=== PATIENT | male | born 2000 | race Caucasian/White ===

== ENCOUNTER 2023-06-25 10:00 | Emergency (ER) | payer OTHER, MEDICAID, SELFPAY ==
[2023-06-25 10:12] VITALS: BP 155/57; PULSE 113; RESP 15; TEMP 37.4; O2SAT 98; BMI 20.3
--- NOTE | 2023-06-25 10:21 | ED_ITS ---
HPI - Psych <Adilene Vargas DO - Last Filed: 06/25/23 18:35> General Chief Complaint: Psychiatric Symptoms Stated Complaint: Threating to kill sister and his mom Time Seen by Provider: 06/25/23 10:20 Source: patient Mode of arrival: Ambulatory Limitations: no limitations History of Present Illness HPI Narrative: 22-year-old male no reported medical history presents with his sister and mother with homicidal ideation with intent to harm/kill both his sister and mother and kill the world. Patient denies intention to harm himself. Does not answer questions why. Patient states he has been hospitalized in the past for mental health. He states he is taken medications. He states it has been a long time since he takes medications he does not really say if it has been months or years. He states he uses tobacco, denies any alcohol, denies any street drugs. Patient states he will not allow for any needles, he states that he does not want any drugs. He states he does not want to hurt anyone in the department right now but does not fully contract for safety for anyone else. Per family patient is schizophrenic has been off his medications for at least 6 months. Related Data Allergies Allergy/AdvReac Type Severity Reaction Status Date / Time No Known Drug Allergies Allergy Verified 06/25/23 10:12 Review of Systems <DO Kathi German Last Filed: 06/25/23 18:35> Review of Systems ROS Unobtainable: All systems reviewed & are unremarkable except as noted in HPI and below Patient History <Adilene Vargas DO - Last Filed: 06/25/23 18:35> Social History Smoking Status: Unknown if ever smoked Smoking Status: Unknown if ever smoked alcohol intake frequency: holidays/special occasions only Substance Use Type: does not use Exam <DO Kathi German Last Filed: 06/25/23 18:35> Narrative Exam Narrative: GENERAL: Alert and oriented x three, well-appearing male. HEENT: Head normocephalic, atraumatic, EOMI, pupils reactive, face symmetric, moist mucous membranes NECK: Supple, full range of motion CARDIOVASCULAR: Regular rate and rhythm without murmurs, rubs or gallops. RESPIRATORY: Breath sounds equal bilaterally, no wheezes rales or rhonchi. ABDOMEN: Soft, nontender. Normoactive bowel sounds all 4 quadrants. No guarding or rebound, rigidity, no mass : No CVA tenderness EXTREMITIES: Normal range of motion, no clubbing or edema. Neurovascularly intact NEUROLOGICAL: Cranial nerves II through XII grossly intact. Moving all extremities SKIN: Warm, dry, no petechiae, no rashes or lesions. PSYCH: Denies suicidal ideation or 10, states that he has thoughts of killing others harming others. Does not give a specific plan. States if they do not have any, NSAIDs he would kill his sister and mom. Initial Vital Signs Initial Vital Signs: Vital Signs Temperature 99.4 F 06/25/23 10:12 Pulse Rate 113 H 06/25/23 10:12 Respiratory Rate 15 06/25/23 10:12 Blood Pressure 155/57 H 06/25/23 10:12 Pulse Oximetry 98 06/25/23 10:12 Oxygen Delivery Method Room Air 06/25/23 10:12 <Gus Cerda DO - Last Filed: 06/27/23 06:54> Initial Vital Signs Initial Vital Signs: Vital Signs Temperature 99.4 F 06/25/23 10:12 Pulse Rate 113 H 06/25/23 10:12 Respiratory Rate 15 06/25/23 10:12 Blood Pressure 155/57 H 06/25/23 10:12 Pulse Oximetry 98 06/25/23 10:12 Oxygen Delivery Method Room Air 06/25/23 10:12 <Rebecca Vasquez MD - Last Filed: 06/28/23 19:42> Initial Vital Signs Initial Vital Signs: Vital Signs Temperature 99.4 F 06/25/23 10:12 Pulse Rate 113 H 06/25/23 10:12 Respiratory Rate 15 06/25/23 10:12 Blood Pressure 155/57 H 06/25/23 10:12 Pulse Oximetry 98 06/25/23 10:12 Oxygen Delivery Method Room Air 06/25/23 10:12 Course <Adilene Vargas DO - Last Filed: 06/25/23 18:35> Orders Ordered: Discontinued Medications Diphenhydramine HCl (Diphenhydramine 50 Mg/Ml Vial) 50 mg IM NOW ONE Stop: 06/25/23 15:31 Last Admin: 06/25/23 18:02 Dose: Not Given Documented By: MIGEL Haloperidol (Haloperidol 5 Mg/Ml Vial) 10 mg IM NOW ONE Stop: 06/25/23 15:31 Last Admin: 06/25/23 18:02 Dose: Not Given Documented By: MIGEL Lorazepam (Lorazepam 2 Mg/Ml Inj) 1 mg IM NOW ONE Stop: 06/25/23 15:31 Last Admin: 06/25/23 18:03 Dose: Not Given Documented By: MIGEL Olanzapine (Olanzapine Odt 10 Mg Tab) 10 mg PO NOW ONE Stop: 06/25/23 15:08 Last Admin: 06/25/23 15:59 Dose: Not Given Documented By: MIGEL Olanzapine (Olanzapine Odt 10 Mg Tab) 20 mg PO NOW ONE Stop: 06/26/23 07:30 Last Admin: 06/26/23 11:46 Dose: Not Given Documented By: RB Vital Signs Vital signs: Vital Signs - 8 hr 06/26/23 22:53 Temperature 98.6 F Pulse Rate 92 H Respiratory Rate 20 Blood Pressure 131/74 Pulse Oximetry 97 Oxygen Delivery Method Room Air <Gus Cerda DO - Last Filed: 06/27/23 06:54> Orders Ordered: Discontinued Medications Diphenhydramine HCl (Diphenhydramine 50 Mg/Ml Vial) 50 mg IM NOW ONE Stop: 06/25/23 15:31 Last Admin: 06/25/23 18:02 Dose: Not Given Documented By: MIGEL Haloperidol (Haloperidol 5 Mg/Ml Vial) 10 mg IM NOW ONE Stop: 06/25/23 15:31 Last Admin: 06/25/23 18:02 Dose: Not Given Documented By: MIGEL Lorazepam (Lorazepam 2 Mg/Ml Inj) 1 mg IM NOW ONE Stop: 06/25/23 15:31 Last Admin: 06/25/23 18:03 Dose: Not Given Documented By: MIGEL Olanzapine (Olanzapine Odt 10 Mg Tab) 10 mg PO NOW ONE Stop: 06/25/23 15:08 Last Admin: 06/25/23 15:59 Dose: Not Given Documented By: MIGEL Olanzapine (Olanzapine Odt 10 Mg Tab) 20 mg PO NOW ONE Stop: 06/26/23 07:30 Last Admin: 06/26/23 11:46 Dose: Not Given Documented By: RB Vital Signs Vital signs: Vital Signs - 8 hr 06/26/23 22:53 Temperature 98.6 F Pulse Rate 92 H Respiratory Rate 20 Blood Pressure 131/74 Pulse Oximetry 97 Oxygen Delivery Method Room Air <Rebecca Vasquez MD - Last Filed: 06/28/23 19:42> Orders Ordered: Discontinued Medications Diphenhydramine HCl (Diphenhydramine 50 Mg/Ml Vial) 50 mg IM NOW ONE Stop: 06/25/23 15:31 Last Admin: 06/25/23 18:02 Dose: Not Given Documented By: MIGEL Haloperidol (Haloperidol 5 Mg/Ml Vial) 10 mg IM NOW ONE Stop: 06/25/23 15:31 Last Admin: 06/25/23 18:02 Dose: Not Given Documented By: MIGEL Lorazepam (Lorazepam 2 Mg/Ml Inj) 1 mg IM NOW ONE Stop: 06/25/23 15:31 Last Admin: 06/25/23 18:03 Dose: Not Given Documented By: MIGEL Olanzapine (Olanzapine Odt 10 Mg Tab) 10 mg PO NOW ONE Stop: 06/25/23 15:08 Last Admin: 06/25/23 15:59 Dose: Not Given Documented By: MIGEL Olanzapine (Olanzapine Odt 10 Mg Tab) 20 mg PO NOW ONE Stop: 06/26/23 07:30 Last Admin: 06/26/23 11:46 Dose: Not Given Documented By: RB Vital Signs Vital signs: Vital Signs - 8 hr 06/26/23 22:53 Temperature 98.6 F Pulse Rate 92 H Respiratory Rate 20 Blood Pressure 131/74 Pulse Oximetry 97 Oxygen Delivery Method Room Air MDM - Psych <Adilene Vargas DO - Last Filed: 06/25/23 18:35> Lab Data 06/25/23 15:56 06/25/23 15:56 Labs: Lab Results 06/25/23 06/25/23 Range/Units 10:24 15:56 WBC 5.8 (4.5-11.0) X10^3/uL RBC 4.96 (4.5-5.9) X10^6/uL Hgb 15.3 (13.5-17.5) g/dL Hct 45.4 (41-53) % MCV 91.6 (80-100) fL MCH 30.9 (26-34) PG MCHC 33.8 (30-36) % RDW 13.3 (11.6-14.8) % Plt Count 279 (150-400) X10^3/uL Neut % (Auto) 53.3 (50-75) % Lymph % (Auto) 30.7 (25-40) % [place] % (Auto) 11.4 (3-14) % Eos % (Auto) 4.5 H (2-4) % Baso % (Auto) 0.1 (0-2) % Neut # (Auto) 3100 (3847-8269) /uL Lymph # (Auto) 1800 (0494-4921) /uL [place] # (Auto) 700 (0-900) /uL Eos # (Auto) 300 (0-450) /uL Baso # (Auto) 0 (0-100) /uL Sodium 139 (137-145) mmol/L Potassium 4.9 (3.4-5.1) mmol/L Chloride 103 (98-107) mmol/L Carbon Dioxide 29 (22-32) mmol/L BUN 12 (9-20) mg/dL Creatinine 0.68 (0.66-1.25) mg/dL Estimated GFR > 60 (>60) mL/min BUN/Creatinine Ratio 17.6 (6-22) Glucose 91 (70-100) mg/dL Calcium 10.4 H (8.4-10.2) mg/dL Total Bilirubin 0.6 (0.2-1.3) mg/dL AST 28 (17-59) IU/L ALT 24 (<50) IU/L Alkaline Phosphatase 66 (38-126) U/L Total Protein 8.7 H (6.3-8.2) g/dL Albumin 4.8 (3.5-5.0) g/dL Globulin 3.9 (1.7-4.1) g/dL Albumin/Globulin Ratio 1.2 (1.0-2.8) TSH 0.505 (0.47-4.68) uIU/mL Free T4 1.60 (0.78-2.19) ng/dL Salicylates < 1.0 (<20) mg/dL U Opiates 300ng/mL cut Negative (Negative) Ur Oxycodone Screen Negative (Negative) Urine Methadone Screen Negative (Negative) Acetaminophen < 10 (10-30) ug/mL Ur Barbiturates Screen Negative (Negative) U Tricyclic Antidepress Negative (Negative) Ur Phencyclidine Scrn Negative (Negative) Ur Amphetamines Screen Negative (Negative) U Methamphetamines Scrn Negative (Negative) Ur MDMA Scrn (Ecstasy) Negative (Negative) U Benzodiazepines Scrn Negative (Negative) Urine Cocaine Screen Negative (Negative) U Marijuana (THC) Screen Negative (Negative) Ethyl Alcohol < 10 ( - 10) mg/dL SARS-CoV-2 (PCR) Negative (Negative) Urine Dip Bedside Urine Glucose Negative Bedside Urine Bilirubin - Negative Bedside Urine Ketone - Negative Urine Specific [place] 1.020 Bedside Urine Occult Blood - Negative Bedside Urine pH 6.0 Bedside Urine Protein - Negative Bedside Urine Urobilinogen - Negative Bedside Urine Nitrite - Negative Bedside Urine Leukocytes - Negative Esterase MDM Narrative Medical decision making narrative: 22-year-old male, history of schizophrenia currently untreated with homicidal thoughts of harming others including his family. Patient states not right now that he would kill them but if they did not have any common sense. Patient states he has been inpatient before, he is refusing any medications or lab draws. Did give urine sample. UDS is negative. Patient was medically cleared by myself without labs with appropriate vitals. Spoke with DCR, they are being dispatched for involuntary. Did speak with patient's mother Annette, patient was inpatient in [facility] in [facility] for behavior and mental health until he aged out as an adult. She states that since then he is had persistent psychiatric issues, he often seems to have auditory hallucinations with God telling him to destroy the world in [place] kind. He states that God tells him to burn down the state of [place]. He is threatened her as well as her daughter and other individuals. She states she does not have easy access to firearms or explosives. She states he has not we will get any knives at them recently but today her talking to his brother who also has some mental health issues and he stated that they were going to hurt his brother and so he was going to kill her and her sister. She states he used to use marijuana but quit because it made things much worse. No reported history of other drugs. She states he does smoke. She states he was on multiple medications including lithium, duloxetine and other strong antipsychotics in the past but has not been willing to take them or seek assistance for months to years. She states he does post on Zeetl and has very disturbing post and describes command hallucinations that God is telling him to destroy the world. [facility] Stone saw patient. Wishes to [facility]. At this time is walk away from facilities will not take the patient without blood work. Contacted 5 facilities despite being cleared by myself medically. Discussed patient likely become violent. Both ESTRADA Stone and myself feel he needs placement. After multiple discussions with the patient patient still refuses. Discussed with patient's several times, law enforcement arrived to stand by. Entire staff presented to the room noted he would received IM medications followed by blood draw. Patient then allowed for blood draw. No medications were given as he complied. Blood draw obtained, patient is medically cleared again. COVID swab is negative. DCR re-contacted. Patient signed out to Dr. Cerda while awaiting placement. <Gus Cerda, DO - Last Filed: 06/27/23 06:54> Lab Data Labs: Lab Results 06/25/23 06/25/23 Range/Units 10:24 15:56 WBC 5.8 (4.5-11.0) X10^3/uL RBC 4.96 (4.5-5.9) X10^6/uL Hgb 15.3 (13.5-17.5) g/dL Hct 45.4 (41-53) % MCV 91.6 (80-100) fL MCH 30.9 (26-34) PG MCHC 33.8 (30-36) % RDW 13.3 (11.6-14.8) % Plt Count 279 (150-400) X10^3/uL Neut % (Auto) 53.3 (50-75) % Lymph % (Auto) 30.7 (25-40) % [place] % (Auto) 11.4 (3-14) % Eos % (Auto) 4.5 H (2-4) % Baso % (Auto) 0.1 (0-2) % Neut # (Auto) 3100 (9757-6386) /uL Lymph # (Auto) 1800 (7768-1356) /uL [place] # (Auto) 700 (0-900) /uL Eos # (Auto) 300 (0-450) /uL Baso # (Auto) 0 (0-100) /uL Sodium 139 (137-145) mmol/L Potassium 4.9 (3.4-5.1) mmol/L Chloride 103 (98-107) mmol/L Carbon Dioxide 29 (22-32) mmol/L BUN 12 (9-20) mg/dL Creatinine 0.68 (0.66-1.25) mg/dL Estimated GFR > 60 (>60) mL/min BUN/Creatinine Ratio 17.6 (6-22) Glucose 91 (70-100) mg/dL Calcium 10.4 H (8.4-10.2) mg/dL Total Bilirubin 0.6 (0.2-1.3) mg/dL AST 28 (17-59) IU/L ALT 24 (<50) IU/L Alkaline Phosphatase 66 (38-126) U/L Total Protein 8.7 H (6.3-8.2) g/dL Albumin 4.8 (3.5-5.0) g/dL Globulin 3.9 (1.7-4.1) g/dL Albumin/Globulin Ratio 1.2 (1.0-2.8) TSH 0.505 (0.47-4.68) uIU/mL Free T4 1.60 (0.78-2.19) ng/dL Salicylates < 1.0 (<20) mg/dL U Opiates 300ng/mL cut Negative (Negative) Ur Oxycodone Screen Negative (Negative) Urine Methadone Screen Negative (Negative) Acetaminophen < 10 (10-30) ug/mL Ur Barbiturates Screen Negative (Negative) U Tricyclic Antidepress Negative (Negative) Ur Phencyclidine Scrn Negative (Negative) Ur Amphetamines Screen Negative (Negative) U Methamphetamines Scrn Negative (Negative) Ur MDMA Scrn (Ecstasy) Negative (Negative) U Benzodiazepines Scrn Negative (Negative) Urine Cocaine Screen Negative (Negative) U Marijuana (THC) Screen Negative (Negative) Ethyl Alcohol < 10 ( - 10) mg/dL SARS-CoV-2 (PCR) Negative (Negative) Urine Dip Bedside Urine Glucose Negative Bedside Urine Bilirubin - Negative Bedside Urine Ketone - Negative Urine Specific [place] 1.020 Bedside Urine Occult Blood - Negative Bedside Urine pH 6.0 Bedside Urine Protein - Negative Bedside Urine Urobilinogen - Negative Bedside Urine Nitrite - Negative Bedside Urine Leukocytes - Negative Esterase MDM Narrative Medical decision making narrative: 22-year-old male, history of schizophrenia currently untreated with homicidal thoughts of harming others including his family. Patient states not right now that he would kill them but if they did not have any common sense. Patient states he has been inpatient before, he is refusing any medications or lab draws. Did give urine sample. UDS is negative. Patient was medically cleared by myself without labs with appropriate vitals. Spoke with DCR, they are being dispatched for involuntary. Did speak with patient's mother Annette, patient was inpatient in [facility] in [facility] for behavior and mental health until he aged out as an adult. She states that since then he is had persistent psychiatric issues, he often seems to have auditory hallucinations with God telling him to destroy the world in [place] kind. He states that God tells him to burn down the state of [place]. He is threatened her as well as her daughter and other individuals. She states she does not have easy access to firearms or explosives. She states he has not we will get any knives at them recently but today her talking to his brother who also has some mental health issues and he stated that they were going to hurt his brother and so he was going to kill her and her sister. She states he used to use marijuana but quit because it made things much worse. No reported history of other drugs. She states he does smoke. She states he was on multiple medications including lithium, duloxetine and other strong antipsychotics in the past but has not been willing to take them or seek assistance for months to years. She states he does post on Zeetl and has very disturbing post and describes command hallucinations that God is telling him to destroy the world. ESTRADA Stone saw patient. Wishes to [facility]. At this time is walk away from facilities will not take the patient without blood work. Contacted 5 facilities despite being cleared by myself medically. Discussed patient likely become violent. Both ESTRADA Stone and myself feel he needs placement. After multiple discussions with the patient patient still refuses. Discussed with patient's several times, law enforcement arrived to stand by. Entire staff presented to the room noted he would received IM medications followed by blood draw. Patient then allowed for blood draw. No medications were given as he complied. Blood draw obtained, patient is medically cleared again. COVID swab is negative. DCR re-contacted. Patient signed out to Dr. Cerda while awaiting placement. Dr Cerda: Received turned over. Reviewed patient's history and physical exam. Patient is medically cleared. Initially the plan was for the DCR to return to evaluate the patient after labs have been drawn. Apparently the 1st attempt to find him placement was unsuccessful because there were no labs not necessarily because there was no bed availability. We attempted multiple times to contact the [facility] and the [facility] however each time we ran into that service stating that the 1st evaluation resulted in a ?walk away ?which means that they can not re- evaluate the patient for 24 hours. We tried to explain to them that it was not because of bed in availability but because he has no labs. We now have labs on the patient. He is medically cleared however they refused to come and see the patient for 24 hours. We will continue to observe patient here in the emergency department. Care turned over to Dr. Vasquez to continue to observe patient until disposition. 12:00 Dr Vasquez patient slept comfortably till late this morning. He is redirectable and not aggressive. He declines any medications this morning. At this point he is medically clear, our psychosocial rehabilitation counselor will talk with DC are and will continue to work on bed availability now but labs have been done and patient is medically cleared 340pm Discussed with ESTRADA Rivera. / hospitals contacted has an available bed, [facility] care is currently screeing him. Will be detained if bed for acceptance is available Dr Cerda overnight 06/26-06/27: Patient has been detained by [facility]. He has been accepted at [facility]. He has been calm and cooperative. Continues to be medically cleared. <Rebecca Vasquez MD - Last Filed: 06/28/23 19:42> Lab Data Labs: Lab Results 06/25/23 06/25/23 Range/Units 10:24 15:56 WBC 5.8 (4.5-11.0) X10^3/uL RBC 4.96 (4.5-5.9) X10^6/uL Hgb 15.3 (13.5-17.5) g/dL Hct 45.4 (41-53) % MCV 91.6 (80-100) fL MCH 30.9 (26-34) PG MCHC 33.8 (30-36) % RDW 13.3 (11.6-14.8) % Plt Count 279 (150-400) X10^3/uL Neut % (Auto) 53.3 (50-75) % Lymph % (Auto) 30.7 (25-40) % [place] % (Auto) 11.4 (3-14) % Eos % (Auto) 4.5 H (2-4) % Baso % (Auto) 0.1 (0-2) % Neut # (Auto) 3100 (4308-5267) /uL Lymph # (Auto) 1800 (9559-9232) /uL [place] # (Auto) 700 (0-900) /uL Eos # (Auto) 300 (0-450) /uL Baso # (Auto) 0 (0-100) /uL Sodium 139 (137-145) mmol/L Potassium 4.9 (3.4-5.1) mmol/L Chloride 103 (98-107) mmol/L Carbon Dioxide 29 (22-32) mmol/L BUN 12 (9-20) mg/dL Creatinine 0.68 (0.66-1.25) mg/dL Estimated GFR > 60 (>60) mL/min BUN/Creatinine Ratio 17.6 (6-22) Glucose 91 (70-100) mg/dL Calcium 10.4 H (8.4-10.2) mg/dL Total Bilirubin 0.6 (0.2-1.3) mg/dL AST 28 (17-59) IU/L ALT 24 (<50) IU/L Alkaline Phosphatase 66 (38-126) U/L Total Protein 8.7 H (6.3-8.2) g/dL Albumin 4.8 (3.5-5.0) g/dL Globulin 3.9 (1.7-4.1) g/dL Albumin/Globulin Ratio 1.2 (1.0-2.8) TSH 0.505 (0.47-4.68) uIU/mL Free T4 1.60 (0.78-2.19) ng/dL Salicylates < 1.0 (<20) mg/dL U Opiates 300ng/mL cut Negative (Negative) Ur Oxycodone Screen Negative (Negative) Urine Methadone Screen Negative (Negative) Acetaminophen < 10 (10-30) ug/mL Ur Barbiturates Screen Negative (Negative) U Tricyclic Antidepress Negative (Negative) Ur Phencyclidine Scrn Negative (Negative) Ur Amphetamines Screen Negative (Negative) U Methamphetamines Scrn Negative (Negative) Ur MDMA Scrn (Ecstasy) Negative (Negative) U Benzodiazepines Scrn Negative (Negative) Urine Cocaine Screen Negative (Negative) U Marijuana (THC) Screen Negative (Negative) Ethyl Alcohol < 10 ( - 10) mg/dL SARS-CoV-2 (PCR) Negative (Negative) Urine Dip Bedside Urine Glucose Negative Bedside Urine Bilirubin - Negative Bedside Urine Ketone - Negative Urine Specific [place] 1.020 Bedside Urine Occult Blood - Negative Bedside Urine pH 6.0 Bedside Urine Protein - Negative Bedside Urine Urobilinogen - Negative Bedside Urine Nitrite - Negative Bedside Urine Leukocytes - Negative Esterase MDM Narrative Medical decision making narrative: 22-year-old male, history of schizophrenia currently untreated with homicidal thoughts of harming others including his family. Patient states not right now that he would kill them but if they did not have any common sense. Patient states he has been inpatient before, he is refusing any medications or lab draws. Did give urine sample. UDS is negative. Patient was medically cleared by myself without labs with appropriate vitals. Spoke with DCR, they are being dispatched for involuntary. Did speak with patient's mother Annette, patient was inpatient in [facility] in [facility] for behavior and mental health until he aged out as an adult. She states that since then he is had persistent psychiatric issues, he often seems to have auditory hallucinations with God telling him to destroy the world in [place] kind. He states that God tells him to burn down the state of [place]. He is threatened her as well as her daughter and other individuals. She states she does not have easy access to firearms or explosives. She states he has not we will get any knives at them recently but today her talking to his brother who also has some mental health issues and he stated that they were going to hurt his brother and so he was going to kill her and her sister. She states he used to use marijuana but quit because it made things much worse. No reported history of other drugs. She states he does smoke. She states he was on multiple medications including lithium, duloxetine and other strong antipsychotics in the past but has not been willing to take them or seek assistance for months to years. She states he does post on Zeetl and has very disturbing post and describes command hallucinations that God is telling him to destroy the world. ESTRADA Stone saw patient. Wishes to [facility]. At this time is walk away from facilities will not take the patient without blood work. Contacted 5 facilities despite being cleared by myself medically. Discussed patient likely become violent. Both ESTRADA Stone and myself feel he needs placement. After multiple discussions with the patient patient still refuses. Discussed with patient's several times, law enforcement arrived to stand by. Entire staff presented to the room noted he would received IM medications followed by blood draw. Patient then allowed for blood draw. No medications were given as he complied. Blood draw obtained, patient is medically cleared again. COVID swab is negative. DCR re-contacted. Patient signed out to Dr. Cerda while awaiting placement. Dr Cerda: Received turned over. Reviewed patient's history and physical exam. Patient is medically cleared. Initially the plan was for the DCR to return to evaluate the patient after labs have been drawn. Apparently the 1st attempt to find him placement was unsuccessful because there were no labs not necessarily because there was no bed availability. We attempted multiple times to contact the [facility] and the DCR however each time we ran into that service stating that the 1st evaluation resulted in a ?walk away ?which means that they can not re- evaluate the patient for 24 hours. We tried to explain to them that it was not because of bed in availability but because he has no labs. We now have labs on the patient. He is medically cleared however they refused to come and see the patient for 24 hours. We will continue to observe patient here in the emergency department. Care turned over to Dr. Vasquez to continue to observe patient until disposition. 12:00 Dr Vasquez patient slept comfortably till late this morning. He is redirectable and not aggressive. He declines any medications this morning. At this point he is medically clear, our psychosocial rehabilitation counselor will talk with DC are and will continue to work on bed availability now but labs have been done and patient is medically cleared 340pm Discussed with ESTRADA Rivera. / hospitals contacted has an available bed, [facility] is currently screeing him. Will be detained if bed for acceptance is available Discharge Plan Departure Patient Disposition: Xfer Psychiatric Hosp Clinical Impression: Chronic schizophrenia, Homicidal ideation
--- NOTE | 2023-06-25 10:31 | PC.NURSE ---
Pt would not allow us to draw labs and will not take any medicine.
--- NOTE | 2023-06-25 10:40 | PC.NURSE ---
Addendum entered by Annette Gee CNA 06/25/23 12:33: pt. sitting calmly on the floor. will continue to monitor 1:1 Addendum entered by Annette Gee CNA 06/25/23 11:54: pt. lunch tray provided, pt. signaled me to set it down in the doorway, this bucket pusher asked for pt. verification prior to setting the lunch tray down, pt. refused to speak instead used asl to spell out pt. name to verify. this bucket pusher placed the meal tray by the doorway as pt. requested. will continue to monitor 1:1 Addendum entered by Annette Gee CNA 06/25/23 11:45: pt. standing in middle of room staring straight ahead and randomly spitting towards a cup on the floor in pt. room. Addendum entered by Annette Gee CNA 06/25/23 11:32: pt. stripped the mattress of the bedding and tossed it to the side. pt. standing in middle of room staring straight ahead, pt. asked to call his mother, this bucket pusher deferred to other connor Bose to relay the request because of the 1:1. told pt. it will be a few minutes before the portable phone can be brought over. Addendum entered by Annette Gee CNA 06/25/23 11:02: pt. pacing in room/bathroom, started laughing and stated it was a mistake, all because a simple mistake, this bucket pusher will continue to provide 1:1 monitoring Original Note: SAMPLER RADIOACTIVE WASTE note: pt. in paper scrubs, pacing around the room, walking in and out of the bathroom. pt. is calm when speaking, pt. asked if he could get a male doctor, this bucket pusher told pt. that today we have a female provider and reassured pt that todays provider is highly qualified and capable of handling pt. care. This SAMPLER RADIOACTIVE WASTE will continue to monitor pt. 1:1.
[2023-06-25 10:42] LABS: UR Morphine/Opiate cutoff 300 Negative (Negative); Ur Creatinine Normal (Normal); Ur Specific Gravity Normal (Normal); Urine Amphetamines Negative (Negative); Urine Barbiturates Negative (Negative); Urine Benzodiazepines Negative (Negative); Urine Cocaine Negative (Negative); Urine MDMA Negative (Negative); Urine Methadone Negative (Negative); Urine Methamphetamines Negative (Negative); Urine Oxycodone Negative (Negative); Urine Phencyclidine Negative (Negative); Urine Tetrahydrocannabinol Negative (Negative); Urine Tricyclic Antidepressant Negative (Negative); Urine pH Normal (Normal)
--- NOTE | 2023-06-25 11:38 | PC.NURSE ---
Patient requesting to speak to mother. Phoned mother at number listed on chart. Left voicemail for return call. Updated patient.
--- NOTE | 2023-06-25 13:36 | PC.NURSE ---
Pt laying on floor of room with head resting on mattress on floor. RN introduced herself and asked if pt needed anything. Pt just shook head no, did not verbalize any needs at this time. Pt appears calm, currently cooperative. RN and GUSSET MAKER collected pt belongings and placed them in belongings bag and secured them in locked cabinet with pt sticker. Continuing to monitor pt needs and behavior while providing a pt safe environment.
--- NOTE | 2023-06-25 14:18 | PC.NURSE ---
director hospice operations note. Pt was using hands and fingers to act he was shooting in the air while laying on the floor. Alyssia oLpes
--- NOTE | 2023-06-25 15:16 | PC.NURSE ---
pt removed wristband and is pacing around the room. 1:1 sitter at doorway
--- NOTE | 2023-06-25 15:25 | PC.NURSE ---
this FORM TAMPER observed CANDIE Perez bring pt's mother to doorway to encourage pt for lab draw. pt spit on the floor and wall and said to pt's mother you better hope they don't release me. pt standing in room. 1:1 sitter at doorway.
--- NOTE | 2023-06-25 16:04 | PC.NURSE ---
Pt has been refusing blood work throughout duration of stay. Pt states staff will have to force him to obtain blood. Pt's Mother attempted to talk with pt and encourage pt to complete blood draw. Pt then began to spit on miller and floor and tells mother I should spit in your face. Pt pacing in room and throwing pillow around room. Dr. Vargas requesting [employer] presence for blood draw. At 1545 [employer] at bedside, pt is standing against wall when staff enters room and allows for blood draw and covid swab. Pt now resting on mattress on floor. Continuing to monitor for escalation in pt behavior. special needs babysitter still in place for 1:1 observation.
[2023-06-25 16:18] LABS: Add Manual Diff / Slide Review NO; Basophils Absolute Auto 0 /uL (0-100); Basophils Percent Auto 0.1 % (0-2); Eosinophils Absolute Auto 300 /uL (0-450); Eosinophils Percent Auto 4.5 % (2-4); Hematocrit 45.4 % (41-53); Hemoglobin 15.3 g/dL (13.5-17.5); Lymphocytes Absolute Auto 1800 /uL (1100-4500); Lymphocytes Percent Auto 30.7 % (25-40); Mean Corpuscular HGB Conc 33.8 % (30-36); Mean Corpuscular Hemoglobin 30.9 PG (26-34); Mean Corpuscular Volume 91.6 fL (80-100); Monocytes Absolute Auto 700 /uL (0-900); Monocytes Percent Auto 11.4 % (3-14); Neutrophils Absolute Auto 3100 /uL (1500-7000); Neutrophils Percent Auto 53.3 % (50-75); Platelet Count 279 X10^3/uL (150-400); Red Blood Cell Count 4.96 X10^6/uL (4.5-5.9); Red Cell Distribution Width 13.3 % (11.6-14.8); White Blood Cell Count 5.8 X10^3/uL (4.5-11.0)
[2023-06-25 16:26] LABS: Acetaminophen < 10 ug/mL (10-30); Alanine Aminotransferase 24 IU/L (<50); Albumin 4.8 g/dL (3.5-5.0); Albumin Globulin Ratio 1.2 (1.0-2.8); Alkaline Phosphatase 66 U/L (38-126); Aspartate Aminotransferase 28 IU/L (17-59); BUN Creatinine Ratio 17.6 (6-22); Bilirubin Total 0.6 mg/dL (0.2-1.3); Blood Urea Nitrogen 12 mg/dL (9-20); Calcium 10.4 mg/dL (8.4-10.2); Carbon Dioxide 29 mmol/L (22-32); Chloride 103 mmol/L (98-107); Estimated Glomerular Filt Rate > 60 mL/min (>60); Ethanol (ETOH) < 10 mg/dL; Globulin 3.9 g/dL (1.7-4.1); Glucose 91 mg/dL (70-100); HEMOLYSIS < 15 (0-50); Potassium 4.9 mmol/L (3.4-5.1); Salicylate < 1.0 mg/dL (<20); Sodium 139 mmol/L (137-145); Total Protein 8.7 g/dL (6.3-8.2)
--- NOTE | 2023-06-25 16:31 | PC.NURSE ---
BEAUTY PARLOR CLEANER note: pt. lying down on safety mattress in room with eyes closed, breathing is even and non labored, chest is rising and falling. will continue to monitor 1:1
[2023-06-25 16:32] LABS: COVID19 -Nasal RAPID Negative (Negative)
[2023-06-25 16:37] VITALS: RESP 16
[2023-06-25 16:59] LABS: Thyroid Stimulating Hormone 0.505 uIU/mL (0.47-4.68)
--- NOTE | 2023-06-25 18:55 | PC.NURSE ---
pt continues to pace between the mattress and the doorway. pt sits calmly on the mattress then will pace for a few minutes and return to a seated position.
--- NOTE | 2023-06-25 19:26 | PC.NURSE ---
Addendum entered by Yu Ruggiero CNA 06/25/23 19:46: ENZO note: Ammending to add patient was standing over my shoulder watching me type my patient note. Patient questioned what I was writing the entire time. Patient also called me the N word multiple times. When told to stop calling me that, he said it's just words. Patient was constantly talking when I was sitting at doorway. Original Note: ENZO note: Patient is agitated. Patient is standing at the edge of the room, at the door, talking to me, cursing at times, asking about murder rates in [place], asking if I hate him because he's a Mosque. Patient using a lot of profanity,
--- NOTE | 2023-06-25 20:23 | PC.NURSE ---
COMMUNITY CENTER DIRECTOR NOTE: pt standing by the doorway as well as pacing in room; pt looked down the vigil and asked me how far do you think I can run?; pt states that he likes the feeling when he's screaming in his head; pt was given apple juice but kept spitting it out inside the room; this sitter remains at bedside
--- NOTE | 2023-06-25 20:38 | PC.NURSE ---
pt will not listen when told to stay inside his room; he states his feet aren't passing the line; pt will talk to the ambulance that comes in as well as [facility]S; after having a conversation with [facility]S he gets the blanket and mops the spit and apple juice on the floor; this sitter remains at bedside.
--- NOTE | 2023-06-25 20:44 | PC.NURSE ---
Addendum entered by Ashia Hooper CNA 06/25/23 20:55: ENZO note: pt flicking off cameras and pacing in room this sitter remains at bedside Original Note: enzo note: pt removed shirt and pulled pants sleeve up and stated how long do you yall think you can tolerate me pt walked out of room and was told to go back in room this sitter remains at bedside
--- NOTE | 2023-06-25 21:30 | PC.NURSE ---
Addendum entered by Ashia Hooper CNA 06/25/23 21:34: pt stated I'm either getting arrested or I'm leaving they should have told y'all I don't care about people I only care about my this sitter remains at bedside. Original Note: ENZO NOTE: pt reached scanner and pretended to shoot me with it this sitter remains at bedside
--- NOTE | 2023-06-26 03:44 | PC.NURSE ---
Addendum entered by Ashia Hooper CNA 06/26/23 04:19: DCR called @ 2094 they are currently working on 2 other cases at [facility] will give us a call back when they are finished with those Original Note: contacted DCR/VOA at this time to check up on the ETA of the dispatched DCR, they informed me that he was deemed a 'walk away' and they would not be out to re evaluate until 1100 the next day. I asked to speak to the group art supervisor about the issue and she directed me to the DCR who is supposed to be calling with more information.
--- NOTE | 2023-06-26 07:32 | PC.NURSE ---
RN spoke with Pt's Mom attempting to obtain a medication list. RN updated Mother as well.
--- NOTE | 2023-06-26 08:29 | PC.NURSE ---
Addendum entered by Ace Leggett R.N. 06/26/23 11:46: This RN attempted to give this medication to the patient. Patient respectfully declined. Provider informed. Original Note: This Patient is currently sleeping. This RN asked provider if she wanted this RN to wake patient to give medication that she ordered. Provider declined and stated hold the medication until he awakens. Will attempt to administer medication when patient is awake.
--- NOTE | 2023-06-26 09:15 | PC.NURSE ---
Addendum entered by Annette Gee CNA 06/26/23 10:45: pt. woke up and asked to use the bathroom, this detail maker and fitter unlocked the bathroom for pt. use, and then locked the bathroom after. Offered pt. breakfast tray, and pt. stated yes, please. notifed CANDIE Chu that pt. was awake and eating breakfast. This detail maker and fitter remains by doorway of pt. room Original Note: INSPECTOR METAL CAN note: this detail maker and fitter is monitoring pt. 1:1, pt. is laying down with a blanket on safety mattress, eyes closed, breathing is even and non labored and chest is rising and falling. will continue to monitor.
[2023-06-26 11:44] VITALS: PULSE 87; RESP 16; TEMP 36.4; O2SAT 97
--- NOTE | 2023-06-26 11:45 | PC.NURSE ---
This RN attempted to get vitals on patient. Patient denied blood pressure. All other vitals within normal limits and entered into the chart.
--- NOTE | 2023-06-26 12:17 | PC.NURSE ---
In interviewing this patient he denies having any thoughts of harming anyone at this time. Patient reports its like a button is switched on. Patient states I never have actual thoughts of hurting people but it's my way of telling someone I can end them at any time. I never have pre motivating thoughts I just think if you you keep pushing that button I will end them and not feel anything when I do it and not have any problems doing the time. Patient reiterates that he has no thoughts of harming anyone at the time of interview and not actively thinking of harming anyone. Patient states I don't have the thing that's supposed to tell you not to do something I just know that if I did there would be consequences. This RN asked if patient would take the medication that the provider ordered. Patient reiterated that no medication works on him. Patient states I was on 300mg of seroqul in the 2nd grade. I was on Ritalin prior to that and afterwards. I have been on risperidone and that didn't work. I over dosed on lithium and nothing works. The only thing that works is telling people I will end them if they keep pushing me. Patient has flat affect during this interview. Patient alert and orientated. Patient denies having hallucination or delusions at this time, and this RN does not note any signs or symptoms that would contradict patient statement. Patient is calm and is able to follow verbal commands. Patient denies having any pain.
--- NOTE | 2023-06-26 12:41 | CM.SWNOTE ---
CLINICAL REHABILITATION LIAISON reviewed EMR and ED sequence of events precipitating this assessment. Pt is a 22 year-old M presenting to the ED acutely psychotic, expressing homicidal intentions towards his mother, sister, and unspecified individuals. DCR was dispatched last evening and was in agreement at that time that pt was acutely homicidal and needed immediate involuntary detainment/placement, although ended up timing out in that too much time went by and he could not place pt due to no labs being available. Pt was at that time refusing staff to take his labs. DCR stated that another DCR assessment/dispatch could not occur for another 24-hours. This CLINICAL REHABILITATION LIAISON again called the DCR and 24-hours have now passed since initial dispatch. See detailed note below for detailed assessment and plan. Discharge Planning/Care Management ED Psychiatric Symptoms Assessment Start: 06/25/23 10:18 Freq: Status: Active Protocol: Document 06/25/23 10:22 KB (Rec: 06/25/23 10:24 KB [id number]) Psychiatric Symptoms Assessment Symptoms/Complaint Homocidal Associated Psychiatric Symptoms Auditory Hallucinations Details of Plan Pt here to turn himself in for being psycho and no sanity. Pt denies wanting to hurt himself. When asked if he wants to kill anyone else he answered the world. Pt does not take any medicine and when asked if he has a history of mental health diagnosis he just giggled. Pt brought here by his mother and his sister. Pt told his mother and sister that he was going to murder them. Pt hearing voices every day. Pt states that the voices are just talking too much and begging for mercy. [ End ] Level of Observation Continuous Precautions Safety precautions initiated Room placement ligature mitigated room Safety Interventions Patient belongings removed from room,Constant observation ,Visitor belongings secured, pockets checked and educated on process,Gurney removed from room,Explanation of process given to patient,Pt placed in hospital safety attire, Mattress placed on floor Affect Description Euphoric Patient Appearance Well Groomed Hallucination Type Auditory Delusion Description Bizarre Homicidal Ideation None Homicidal Plan to kill his mother and sister as well as the world. Document 06/25/23 13:00 KM (Rec: 06/25/23 13:42 KM [id number]) Psychiatric Symptoms Assessment Symptoms/Complaint Homocidal Duration Constant History Of Same Yes Context Not Taking Psychiatric Medications Improves With Nothing Worsens With Nothing Associated Psychiatric Symptoms Auditory Hallucinations, Homicidal Ideation Level of Observation Continuous Precautions Safety precautions initiated Room placement ligature mitigated room Safety Interventions Patient belongings removed from room,Constant observation ,Gurney removed from room,Pt placed in hospital safety attire,Mattress placed on floor Level of Consciousness Alert,Appropriate Patient Behavior/Mood Cooperative,Flat Ability to Follow Directions Good Patient Cognition Impaired Yes Affect Description Calm Patient Appearance Unkempt Hallucination Type Auditory Major Depressive Episode No Feelings of Hopelessness No Suicidal Ideation None Homicidal Ideation Frequent,Constant,Harm to Others Nausea/Vomiting None Document 06/25/23 15:00 KM (Rec: 06/25/23 16:15 KM [id number]) Psychiatric Symptoms Assessment Symptoms/Complaint Homocidal Duration Constant History Of Same Yes Context Not Taking Psychiatric Medications Improves With Nothing Worsens With Nothing Associated Psychiatric Symptoms Auditory Hallucinations, Homicidal Ideation Level of Observation Continuous Precautions Safety precautions initiated Room placement ligature mitigated room Safety Interventions Constant observation Level of Consciousness Alert Patient Behavior/Mood Suspicious,Uncooperative Ability to Follow Directions Poor Patient Cognition Impaired Yes Affect Description Suspicious Patient Appearance Unkempt Hallucination Type Auditory Homicidal Ideation Frequent,Constant,Harm to Others Nausea/Vomiting None Document 06/25/23 17:00 KM (Rec: 06/25/23 17:03 KM [id number]) Psychiatric Symptoms Assessment Symptoms/Complaint Homocidal Duration Constant History Of Same Yes Context Not Taking Psychiatric Medications Improves With Nothing Worsens With Nothing Associated Psychiatric Symptoms Auditory Hallucinations Level of Observation Continuous Level of Consciousness Alert Patient Behavior/Mood Cooperative Ability to Follow Directions Fair Patient Cognition Impaired Yes Affect Description Calm Patient Appearance Unkempt Hallucination Type Auditory Nausea/Vomiting None Document 06/25/23 19:01 KM (Rec: 06/25/23 19:02 KM [id number]) Psychiatric Symptoms Assessment Symptoms/Complaint Homocidal Duration Constant History Of Same Yes Context Not Taking Psychiatric Medications Improves With Nothing Worsens With Nothing Level of Observation Continuous Level of Consciousness Alert Patient Behavior/Mood Cooperative Ability to Follow Directions Fair Patient Cognition Impaired Yes Affect Description Calm Patient Appearance Unkempt Hallucination Type Auditory Homicidal Ideation Frequent,Constant,Harm to Others Nausea/Vomiting None Document 06/25/23 21:00 GC (Rec: 06/25/23 21:02 GC [id number]) Psychiatric Symptoms Assessment Symptoms/Complaint Homocidal Duration Constant History Of Same Yes Context Significant Life Stressor Improves With Nothing Worsens With Nothing Associated Psychiatric Symptoms Homicidal Ideation Associated Symptoms Denies Other Symptoms Level of Observation Continuous Document 06/25/23 23:00 GC (Rec: 06/25/23 23:00 GC [id number]) Psychiatric Symptoms Assessment Patient sleeping - not awakened for Yes symptom reassessment Document 06/26/23 01:00 GC (Rec: 06/26/23 01:09 GC [id number]) Psychiatric Symptoms Assessment Patient sleeping - not awakened for Yes symptom reassessment Document 06/26/23 03:00 GC (Rec: 06/26/23 03:07 GC [id number]) Psychiatric Symptoms Assessment Patient sleeping - not awakened for Yes symptom reassessment Document 06/26/23 05:00 GC (Rec: 06/26/23 05:01 GC [id number]) Psychiatric Symptoms Assessment Patient sleeping - not awakened for Yes symptom reassessment Document 06/26/23 07:00 GC (Rec: 06/26/23 07:17 GC [id number]) Psychiatric Symptoms Assessment Patient sleeping - not awakened for Yes symptom reassessment Document 06/26/23 09:00 RB (Rec: 06/26/23 09:11 RB [id number]) Psychiatric Symptoms Assessment Patient sleeping - not awakened for Yes symptom reassessment Document 06/26/23 11:00 RB (Rec: 06/26/23 11:18 RB [id number]) Psychiatric Symptoms Assessment Symptoms/Complaint Homocidal Duration Changing Over Time History Of Same Yes Context Not Taking Psychiatric Medications Worsens With Nothing Associated Psychiatric Symptoms None Associated Symptoms Denies Other Symptoms Details of Plan Denies having any thoughts of homocidal actions at this time . Patient states I feel like it when a button presses it turns on. Patient denies having any plans to harm anyone at this time. Level of Observation Continuous Level of Consciousness Alert,Appropriate,Awake Patient Orientation Name,Age,Birthday,Month,Date, Year,Day of Week,Place, Situation Patient Behavior/Mood Cooperative,Flat Ability to Follow Directions Good Patient Cognition Impaired No Affect Description Calm,Flat Patient Appearance Unkempt Hallucination Type None Delusion Description Not Present Thought Process: Disorganized Major Depressive Episode No Feelings of Hopelessness No Suicidal Ideation None Suicide Plan No Plan Homicidal Ideation None Nausea/Vomiting None CLINICAL REHABILITATION LIAISON - Front Window Cashier Assessment Start: 06/26/23 12:06 Freq: Status: Active Protocol: Document 06/26/23 12:08 DPL (Rec: 06/26/23 12:41 DPL [id number]) CLINICAL REHABILITATION LIAISON/Front Window Cashier Assessment Start date 06/26/23 Visit Start Time 11:00 End date 06/26/23 Visit End Time 03:00 Total time Care Management spent on 4 hours patient visit-in minutes Presenting Problem Pt is a 22 year-old M presenting to the ED with his mother and sister, with active homicidal ideation to kill both his mother and sister, and kill the world. He presents as disorganized, responding to internal stimuli , refusing meds or blood test for labs. He has been off of his meds approx. 6-months, per mom's report. Mom shares that he also has persistent auditory hallicinations, with God telling him to destroy the world and mankind, and to burn down the world. Precipitating Event(s) Per mom and sister, he has had persistent psychiatric issues for several years, and is threatening her, her daughter, as well as other non-specific individuals. His brother also has mental health issues, and both pt and his brother were plotting a plan together to harm others. Patient Strengths Pt is able to perform his own ADL's. He has apparently demonstrated strong resilience in having lived in [place] [facility] for his childhood and teen years, and has been able to manage for lengths of time without inpt tx. Has been living independently in the community with his family for an unspecified amount of time. Current Behavioral Health Provider(s) None Include Facility, Provider, Ph. # Psych. 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 He lived in a [facility] home in [place] for 5-years as a teenager until he aged out, and has had several inpt psych hospitalizations since. He does not use alcohol or illegal substances, although in the past had used marijuana , but it made his psych issues worse. Family Hx of Behavioral Abuse Pt's brother also has severe mental health issues. Psychiatric Hospitalizations (date(s)/ Not known location) Psychosocial information & Support Pt resides with his mother, Systems sister, and brother. School/Work N/A Legal Matters - Outstanding Issues No current legal concerns. Orientation (Person/Place/Time) Pt is oriented to person/place /time, however he demonstrates very disorganzied thinking. Stated Mood Pt is vacillating between being highly agitated, paranoid, and threatening, to being calm and cooperative. Affect (Congruent with Mood?) Yes. Mostly flat affect. Thought Content - Specify/Describe Pt is observed to be Obsessions, Delusions, Hallucinations responding to internal stimuli , has been experiencing persistent auditory hallucinations focused on killing people. Thought Processes (Tycywzd-Ohupgaup-Hucz Pt has shown very manipulative Jopctiul-Biywaibg-Lmndrkoyts- behaviors since arriving to [facility]Fsz[facility]Mrqtdbptismw- the ED. He told the Thought Blocking) [place] sitter outside his room, you are going to nigger. He also told one of the RN's that I'm missing the part of my brain that would prevent me from killing all of you, I don't want to harm you right now, but that could change. Behaviors and though processes condusive to active psychosis. Speech (Emjeti-Lpqe-Ddrudmj-Rapid-Soft- Normal Loud-Pressured) Motor (Atjfrb-Sdluwyysg-Rhzb-Other) Pacing, refusing to stay in the room, testing behaviors, and posturing. Insight (Mkwp-Ymwv-Rwip/Limited) Poor Judgement (Avwz-Hyyw-Jexn/Limited) Poor Impulse Control (Adequate-Impaired) Impaired Memory (Sxoutjjey-Wnpfnw-Ylwrff, Unable to assess. Impaired-Intact) Concentration (Intact-Impaired) Impaired Attention (Intact-Impaired) Impaired Behavior (Appropriate-Inappropriate) Both, he took off his shirt and pants, has been in his underwear for several hours. He can be appropriate and able to be redirected at times, but is clearly acting very manipulative with staff. Staff consider him to be unpredictable. Suicidal Ideation (Plan) No Homicidal Ideation (Plan) Yes: No specific plan. Intervention Pt was placed in the ED secured room, door open at this time. Pt is refusing all psych meds offered to him, and it took the [place] [employer] to stand by before he would allow a needle stick for blood draw/labs. DCR already assessed him last night, was timed out and left withough HANSEL intervention, could not place him last night without labs. Now we have labs, and this CLINICAL REHABILITATION LIAISON called DCR to come and start HANSEL process urgently. RA Plan Plan is for involuntary psychiatric placement as soon as can be arranged. Mother supportive of this plan and is afraid for her and her other children's lives. CLINICAL REHABILITATION LIAISON initiated process of locating a bed for placement while we wait for DCR to come and re- assess.
--- NOTE | 2023-06-26 13:20 | PC.NURSE ---
This nurse went to do the two hour assessment with this patient. Patient is laying on mattress eyes closed. This RN can see rise and fall of chest.
--- NOTE | 2023-06-26 15:37 | PC.NURSE ---
Wang DCR just interviewed this patient in room. DCR in patient room for roughly 30 minutes.
--- NOTE | 2023-06-26 16:04 | PC.NURSE ---
pt says yes sir and please when asking for water. water provided. pt continues to pace around room.
--- NOTE | 2023-06-26 17:15 | PC.NURSE ---
Addendum entered by Annette Gee CNA 06/26/23 18:40: pt. asked CANDIE Chu for water, this assurance senior manager insurance handed a water cup to pt. , pt. is now drinking some water and spitting a little out while pacing around the room. this assurance senior manager insurance remains at pt. doorway Addendum entered by Annette Gee CNA 06/26/23 18:35: pt. pacing in room spitting on the floor, miller, the cameras, and sticking his middle finger(s) at the cameras. [facility] assurance senior manager [facility] Addendum entered by Annette Gee CNA 06/26/23 18:16: pt. remains standing in the doorway and spit onto the floor , pt. given another emesis bag, pt. continues to spit in the bag and on the floor. this assurance senior manager insurance remains at pt. room doorway Addendum entered by Annette Gee CNA 06/26/23 17:33: pt. standing in doorway, spitting into emesis bag, periodically jumping on safety mattress. pt. stated you look like D.Kristina, pt. then asked if he is being transferred, this assurance senior manager insurance told pt. I have no further information yet. pt. was offered magazines or books to pass the time , pt. denied and stated i will probably just tear them . this assurance senior manager insurance remains at pt. room doorway Original Note: INSURANCE VERIFICATION REP note: this INSURANCE VERIFICATION REP is monitoring pt. at pt. room doorway. pt. standing in doorway with blanket wrapped around his shoulders. this assurance senior manager insurance remains at pt. doorway.
--- NOTE | 2023-06-26 17:26 | PC.NURSE ---
This RN reinterviewed patient about the list of depressive symptoms and patient denied all listed symptoms.
--- NOTE | 2023-06-26 19:02 | CM.SWNOTE ---
Associate Program Manager Note-update Pt is in the process of being detained by [facility] will accept at 10:00am tomorrow. He will remain in the ED until then. No further WILDLIFE ECOLOGIST needs identified at this time.
--- NOTE | 2023-06-26 19:05 | PC.NURSE ---
Patient restless and was jumping on his mattress that is on the floor. Patient redirected and asked to stop jumping. This RN offered patient something to eat. Patient asked if he could have vanilla pudding. Pudding provided patient pleased and stopped jumping. Patient has been spitting this RN asked patient to spit in provided emesis bag. Patient complied. This RN asked if patient would be interested in willing to take medications to help him and patient refused. Provider notified.
[2023-06-26 22:53] VITALS: BP 131/74; PULSE 92; RESP 20; TEMP 37; O2SAT 97
--- NOTE | 2023-06-27 07:30 | PC.NURSE ---
Addendum entered by Annette Gee CNA 06/27/23 09:32: [facility] ambulance has arrived to transfer the patient to another facility. Original Note: TUBER HELPER note: pt. is laying down, eyes close, respirations are even and non labored, chest is rising and falling. this tourist information officer remains at pt. doorway for 1:1
--- NOTE | 2023-06-27 09:50 | PC.NURSE ---
This RN gave report to Ailin at [facility] in [place].
--- NOTE | 2023-06-27 09:54 | PC.NURSE ---
RN updated pt's Mother via phone about pt transferring to [facility].
== END 2023-06-27 09:56 ==
PROVIDERS: Emergency Medicine; Emergency Provider Emergency Medicine
DX: F20.89 Other schizophrenia (principal); R45.850 Homicidal ideations
CPT/HCPCS: 80053; 80305; 80320; 80329; 81003; 84439; 84443; 85025; 87635; 96372; 99283; 99284; C9803; G0480